=== PATIENT | female | born 2000 | race Caucasian/White ===

== ENCOUNTER 2018-12-04 18:47 | Emergency (ER) | payer BC ==
[2018-12-04] MEDS ORDERED: NS 1,000 ML IV ONE ×2 (18:53→19:56)
[2018-12-04] MEDS ORDERED: LORazepam 2 MG/ML INJ IM ONE ×2 (18:54→18:59)
[2018-12-04] MEDS ORDERED: HALOPERIDOL LACT 5 MG/ML INJ IM ONE (18:54)
--- NOTE | 2018-12-04 19:02 | EDPHY ---
H & P Source: Patient, Police, EMS Time Seen by Provider: 12/04/18 19:00 HPI/ROS: HPI CHIEF COMPLAINT: Acute psychosis, screaming, left arm laceration, M1 hold by police, alcohol intoxication HISTORY OF PRESENT ILLNESS: This patient is a 18-year-old female she presents to the emergency room in handcuffs by police and EMS in 4 point restraints for acute psychosis and screaming/intoxication. It is unclear exactly how police made contact with the patient but apparently she was outside screaming making and disturbance and the police and EMS made contact with her brought her here in 4 point restraints. She arrives to the emergency room screaming, appears to be psychotic, will not follow commands. She has a large left arm volar laceration across the distal 1/3 of her forearm. Past Medical History: Unknown medical history Past Surgical History: Unknown surgical history Social History: Unknown Family History: Unknown ROS REVIEW OF SYSTEMS: Limited due to screaming and mental state. Exam Constitutional screaming, smells of alcohol, acutely psychotic, triage nursing summary reviewed, vital signs reviewed, awake/alert. Eyes normal conjunctivae and sclera, EOMI, PERRLA. HENT normal inspection, atraumatic, moist mucus membranes, no epistaxis, neck supple/ no meningismus, no raccoon eyes. Respiratory clear to auscultation bilaterally, normal breath sounds, no respiratory distress, no wheezing. Cardiovascular rate normal, regular rhythm, no murmur, no edema, distal pulses normal. Gastrointestinal soft, non-tender, no rebound, no guarding, normal bowel sounds, no distension, no pulsatile mass. Genitourinary no CVA tenderness. Musculoskeletal left arm: Good distal pulse, good cap refill, large 8 cm horizontally oriented left forearm laceration volar side, with muscle involvement and tendon involvement. Unable to assess sensation due to patient' s agitated combative behavior, then subsequently sedation. Unable to evaluate movement of digits due to intoxication/agitated behavior. no midline vertebral tenderness, full range of motion, no calf swelling, no tenderness of extremities, no meningismus, good pulses, neurovascularly intact. Skin pink, warm, & dry, no rash, skin atraumatic. Neurologic intoxicated, screaming. Moves all extremities. Psychiatric screaming, acutely psychotic Heme/Lymph/Immune no lymphadenopathy. Differential Diagnosis: Includes but is not limited to in a particular order underlying acute psychosis, mood disorder, depression, substance abuse Medical Decision Making: Plan for this patient she is on M1 hold by police, she is here acutely psychotic and screaming, unable to evaluate her, she has a left arm laceration needs further evaluation, IM Haldol 10 mg has been ordered IM Ativan 2 mg has been ordered, basic labs cardiac cath technologist. Re-evaluation: 1918: Patient remains acutely psychotic, agitated, I have ordered the patient 5 mg IM Versed on top of 10 mg IM Haldol 2 mg IM Ativan Left arm is examined: The patient's left arm could only be examine after she was sedated with Haldol 10 mg IM 2 mg IM Ativan and 5 mg IM Versed. I was unable to earlier examine her arm due to acute psychosis screaming and combative behavior. The patient is now sedated I was able to examine her left arm. She does have a good distal pulse, good cap refill, she has a rather large gaping left arm laceration that is horizontal along the volar side of the left forearm. It Is approximately 8 cm in length horizontally it involves tendon and muscle. There is an obvious tendon laceration of the flexor tendons. Unclear at this time, which digits are unable to flex, due to her not able to participate in exam ( intoxicated/sedated) Plan for IV Ancef. Will clean wound copiously. Contact orthopaedics. Plan for 2 L of normal saline fluid. Will place a dressing over the left forearm laceration Will contact Orthopedics. I spoke with Orthopedics consult them at 8:[address] Vega, we discussed case in detail. He recommends loose approximation of the wound edges, clean and irrigate her wound copiously. IV Ancef, suture close and splint. He will be glad to follow her up for final wound closure/tendon repair. Serum alcohol level 285 upon arrival. X-ray left forearm negative for acute fracture foreign bodies. Soft tissue swelling noted. Long discussion with mom over the phone at 9:00 p.m. The mom will be flying out here tomorrow morning she is 6:00 a.m. Flight from [place] and will be here around 10:30 a.m.. Patient is pending sobriety at this time 9:19 p.m.. Patient signed over to Dr. Miles. 920pm. Patient will need to sober from her alcohol and medications that were given. She will then need mental health evaluation in the morning. Patient will need eval. Mom to visit in am. Additionally, discharge instructions will be provided for follow up care of her arm. Additionally, keflex Rx will be provided. Once she is awake in the arm, and demar from alcohol, and sedation medications , we will need to go over instruction on who to follow up with and when. She will need to follow up with ortho for final care of her wound/tendons. Critical Care: Total Critical Care Time Spent Managing this Patient: 65 Minutes. This time was spent Exclusively with this patient. This Care was exclusive of procedures. The Organ System/life at risk was Acute Pyschosis, alcohol Intoxication, left arm wound/laceration/tendon laceration. This Patient was in Critical Condition because Acute Pyschosis, alcohol Intoxication, left arm wound/laceration/tendon laceration. (Donn Elizondo) Constitutional: Initial Vital Signs Temperature (C) 36.4 C 12/04/18 19:00 Heart Rate 107 H 12/04/18 19:00 Respiratory Rate 16 12/04/18 19:00 Blood Pressure 112/88 H 12/04/18 19:00 O2 Sat (%) 93 12/04/18 19:00 O2 Delivery Mode Room Air Allergies/Adverse Reactions: No Known Allergies Allergy (Unverified 12/05/18 10:56) Home Medications: Medication Instructions Recorded Cephalexin [Keflex] 500 mg PO Q6H #28 cap 12/04/18 Lexapro 12/05/18 traZODone 12/05/18 Medical Decision Making Procedures: Laceration Repair I was asked to assist in loose closure of this left forearm wound. Patient is sedated, implied consent. Incision across the volar aspect of the left forearm 8 cm in length, full-thickness with tendon and muscle involvement. Franklin protocol used to establish correct patient, procedure, equipment, desktop support specialist, and site. Anesthesia obtained by local infiltration. Anesthetized with 1% lidocaine with epinephrine. Laceration location left mid volar mid forearm, length 8 cm, simple. Patient was prepped and draped in usual sterile fashion. Hemostasis achieved with direct pressure. Wound explored through full range of motion and entire depth of wound probed and visualized with gloved finger. No suspicion for foreign body, or contamination. Area was cleansed with Shur-Clens and copiously irrigated with sterile saline as per protocol. No foreign body or material removed. Repair method 4.0 Prolene interrupted. Twelve of sutures placed. Well aligned, loosely approximated. wound was dressed with antibiotic ointment, dressing and volar splint. Patient tolerated well with no immediate complications. Wound care: Clean and dry x 24 hours, gently clean with soap and water, cover with topical antibiotic ointment/bandage. Patient will follow up outpatient with Orthopedic surgery for wound evaluation. (Yumi Diallo) ED Course/Re-evaluation: Patient's care was signed out to me by Dr. Elizondo at 9:00 p.m.. Her labs are reviewed. Her forearm laceration has been repaired. She is resting comfortably. She needs a mental health evaluation after sobriety. (Yuan Miles) 1623: Patient accepted at [facility]. Appropriate transfer be set up. EMtala Will be filled out. Dr. Richardson accepts. (Donn Elizondo) Other Provider: Care assumed at 7:00 a.m., patient is on a mental health hold. Plan for mental health evaluation today. Her wound has been addressed as requested by Orthopedics, volar splint is in place. I will order her to receive oral Keflex scheduled while she is in the emergency department, an outpatient prescription has been written by Dr. Elizondo. Signed back to Jaret at 1500 placement pending. (Raymond Casas) Care Turn Over: Dr. Hughes at 11 pm (Yuan Miles) 6:23 a.m.- Patient has been stable, sleeping overnight. Blood alcohol level was elevated and that she is awaiting mental health evaluation this morning. Her mother is flying in this morning. Case will be signed out to the oncoming provider Dr. Casas at 7:00 a.m. (Alice Amezcua) - Data Points Laboratory Results: Laboratory Results 12/04/18 19:30 12/04/18 19:40 Medications Given: Cephalexin HCl (Keflex) 500 mg PO Q6 EUSEBIO PRN Reason: Protocol Stop: 01/04/19 13:14 Last Admin: 12/05/18 13:25 Dose: 500 mg Discontinued Medications Cephalexin (Keflex 500 Mg Prepack#4) 1 btl TAKEHOME EDNOW ONE PRN Reason: Protocol Stop: 12/04/18 21:13 Last Admin: 12/05/18 11:14 Dose: Not Given Cephalexin HCl (Keflex) 500 mg PO Q6 ONE PRN Reason: Protocol Stop: 12/05/18 06:46 Last Admin: 12/05/18 08:46 Dose: 500 mg Haloperidol Lactate (Haldol Injection) 10 mg IM EDNOW ONE Stop: 12/04/18 18:55 Last Admin: 12/04/18 19:00 Dose: 10 mg Sodium Chloride (Ns) 1,000 mls @ 0 mls/hr IV EDNOW ONE; Wide Open PRN Reason: Protocol Stop: 12/04/18 18:54 Last Admin: 12/04/18 19:42 Dose: 1,000 mls Cefazolin Sodium/Dextrose (Ancef) 100 mls @ 200 mls/hr IV EDNOW ONE PRN Reason: Protocol Stop: 12/04/18 20:25 Last Admin: 12/04/18 20:37 Dose: 100 mls Sodium Chloride (Ns) 1,000 mls @ 0 mls/hr IV ONCE ONE PRN Reason: Wide Open Stop: 12/04/18 19:57 Last Admin: 12/04/18 20:37 Dose: 1,000 mls Lorazepam (Ativan Injection) 2 mg IM EDNOW ONE Stop: 12/04/18 19:00 Last Admin: 12/04/18 19:00 Dose: 2 mg Midazolam HCl (Versed) 5 mg IM EDNOW ONE Stop: 12/04/18 19:19 Last Admin: 12/04/18 19:28 Dose: 5 mg Midazolam HCl (Versed) 5 mg IVP EDNOW ONE Stop: 12/04/18 20:59 Last Admin: 12/04/18 22:08 Dose: Not Given Departure - Departure Disposition: Other Psych, Not [place] Clinical Impression: Psychosis Qualifiers: Psychosis type: other Qualified Code(s): F28 - Other psychotic disorder not due to a substance or known physiological condition Laceration of left forearm with tendon involvement Qualifiers: Encounter type: initial encounter Qualified Code(s): S51.812A - Laceration without foreign body of left forearm, initial encounter Alcohol intoxication Qualifiers: Complication of substance-induced condition: uncomplicated Qualified Code(s): F10.920 - Alcohol use, unspecified with intoxication, uncomplicated Condition: Good Instructions: Cephalexin (By mouth), Laceration (ED), Alcohol Intoxication (ED) Additional Instructions: 1. Take antibiotics as prescribed. 2. You need to follow up with Orthopedics Dr. Vega this Thursday or Thursday in the office, as the laceration on her left arm has cut some tendons. 3. Return to the emergency room if she develops worsening symptoms questions or concerns Referrals: Nathaniel Vega MD [Medical Doctor] - 1-2 days without fail Prescriptions: Cephalexin [Keflex] 500 mg PO Q6H #28 cap
[2018-12-04] MEDS ORDERED: MIDAZOLAM 10 MG/2 ML VIAL IM ONE (19:18)
[2018-12-04] MEDS ORDERED: ceFAZolin 2 GM/DEXTROSE 100 ML IV ONE (19:56)
[2018-12-04 19:57] LABS: PLATELET COUNT 423 10^3/uL (150-400)
[2018-12-04] MEDS ORDERED: MIDAZOLAM 10 MG/2 ML VIAL ONE (20:54)
[2018-12-04] MEDS ORDERED: MIDAZOLAM 2 MG/2 ML VIAL IVP ONE (20:58)
[2018-12-04] MEDS ORDERED: CEPHALEXIN 500MG PREPACK#4 BTL TAKEHOME ONE (21:12)
[2018-12-05] MEDS ORDERED: CEPHALEXIN 500 MG CAP PO ONE (06:45)
[2018-12-05] MEDS ORDERED: CEPHALEXIN 500 MG CAP PO SCH (13:15)
--- NOTE | 2018-12-05 14:32 | ASMTTLCEVL ---
TLC Evaluation - Basic Information Evaluation Start Date and 12/05/2018 11:00 AM Time Hospital Status Answers: M1 Hold 72-hr M1 Hold Start Date 12/04/2018 06:00 PM and Time Patient statement Notes: "getting upset...I remember feeling very sad". Narrative Notes: Eugenio is a 18 y/o female, college student. Pt was brought in by an ambulance on an M1 hold for being a danger to herself. Per M1, "I contacted Tram at [address] [place] [address] after reports she cut her wristss. When contacted, Tram was frantic and tried to leave despite a large laceration to her left wrist. She was eventually taken to [facility]". Pt's ETOH level was 285 and she was positive for marijuana. Pt was calm upon arrival at the ED, but shortly thereafter became agitated. She was treated with Haldol, Ativan and Versed and once calm had her wound examined and treated. Pt's mother flew in from [place] and she and her daughter were interviewed separately for mental health evaluation. It appears that pt talked to her mother yesterday and seemed "okay" following a few days of feeling upset due to her bf attending a concert outof state and without her (he had used money he had saved for their formal to attend this event). Later that day pt began to drink alcohol with a group of friends. Pt apprently left her home and walked the 2 blocks to her 's fraternity where she entered the kitchen a took a knife from a drawer. She made a horizontal cut in her arm approx 7cm in length, lacerating her flexor tendons. She then took a picture of her arm and sent it to her . Pt followed this by walking back to her home where she resisted her roomates attempts to call an ambulance. Pt shared that she was not suicidal when she did this, but "just wanted to see...". She later said that this was not a suicide attempt, "I did not want to ". Pt has had a number of significant stressors which began in her senior year of high school when she lost her best friend commited suicide. Pt then went on to have a chalenging first 2 years at ; she struggled to make friends as a freshman and was declined by a sorority. She began her sophomore year with 3 close friends and roomates. One of these girls did not return to school and the girl she was closest with was arrested twice. This friend spent a month this spring in rehab and was unavailable to pt. Pt's bf was arrested for DV while observed trying to help her, following a fall from drunkenss. There was a restaining order put into place which was suspended and allowed them to see eachother, but only in public. This was then followed by her bf going to this out of state concert without her (she did not have the funds to go). [facility] describes her daughter as sensitive, emotional, empathetic and since high school more easily agitated by parental limits. She shares that her daughter has always disliked change. When her family moved to [place] when she was in 2nd grade, pt offered to stay there. and live with a neighbor. Both pt and mother recall a time when she was in middle school and lost a friend suddenly with no ability to say good-bye as a very difficulty time for her. Pt has no reported hx of SI/SA, HI/HILL and denies any at the present. Pt's mother plans to take pt back to [place] when she is d/opal from the hospital; she will seek dual diagnosis treatment. Diagnosis History Notes: Pt has been in therapy in the past following specific life events, but no psychiatric diagnosis is known. Prior suicide attempts Notes: Pt denies. Prior hospitalizations Notes: Pt denies. Treatment Responses Notes: Pt has benefitted from therapy in the past and sought help recently at [facility] at . History of violence Notes: Pt denies Therapist: None Psychiatrist: None Medications (name, dosage, route, freq uency) Notes: Keflex 500mg Q6H Allergies/Reaction Notes: Seasonal allergies Sleep Notes: Pt tends to have difficulty falling asleep and then when possible will sleep in late. Appetite Notes: Pt appears to be of a healthy weight. She lost approx 20 lbs during her freshman year, has gained some of that back and now has a stable weight. Medical/Surgical history Notes: Pt had her wound sutured in the ED; there were 12 stitches. A Volar splint is in place. Substance use history (frequency, intensity, his tory, duration) Notes: Pt reports drinking weekly, up to 5 drinks at a time. Her BAL was 285. Pt uses marijuana regularly Pt has experiemented with other substances, but does not use them regularly. Family composition Notes: Pt's parents are and live in [place], [place]. She has 2 sisters, 14 and 22. Need for family Answers: Yes participation in patient's care Family psychiatric/substance abuse history Notes: PGM committed suicide following a diagnosis of depression. Nephew - had a period of depression Maternal uncle has alcoholism Sister has fibromyalgia and the medications for that cause depression in her. Developmental history Notes: Pt met her developmental milestones. She did well in school and always had friends. [facility] describes her daughter as sensitive, emotional, empathetic and since high school more easily agitated by parental limits. She shares that her daughter has always disliked change. When her family moved to [place] when she was in 2nd grade, pt offered to stay there. and live with a neighbor. Both pt and mother recall a time when she was in middle school and lost a friend suddenly with no ability to say good-bye as a very difficulty time for her. Abuse concerns Answers: None Marital status/children Notes: Pt is not and has no children. Living situation Notes: Pt lives with roomates in [place]. Sexual history/orientation Notes: Heterosexual Peer support/family strengths Notes: Pt has a supportive family, multiple close friends and has been in a relationship with her bf for 4 years Education level/history Notes: Pt is a sophomore at studying Political science and Psychology. 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 Notes: Pt denies. Legal Notes: Pt denies. Islam/Spiritual Notes: Unknown Leisure Notes: Pt enjoys spending time with her friends, music, playing and coaching lacrosse. Collateral Notes: Mother- Giovani Ortega, Patient's strengths Answers: Athletic (Please select at least TWO strengths): Intelligent Supportive Family TLC Evaluation - Mental Status Exam Appearance: Answers: Unkempt Disheveled Eye Contact: Answers: Avoiding Mood: Answers: Depressed Affect: Answers: Blunted Subdued Behavior: Answers: Appropriate Cooperative Speech: Answers: Relevant Logical Clear Coherent Thought Process: Answers: Organized Oriented Alert Goal Oriented Intact Insight: Answers: Poor Judgement: Answers: Poor Depression Answers: Crying Spells Signs/Symptoms: Sad Mood Hallucinations: Answers: None Pt reported to have Answers: Yes suicidal/self-injuring ideation/behavior? Pt reported to be making Answers: Yes suicidal/self-injuring threats? Pt reported to have Answers: No aggression/assault ideation/behavior? Pt reported to be making Answers: No aggression/assault threats? Pt exhibits inability to Answers: No care for self/grave disability? Ideation/behavior is Answers: No chronic? Patient has a specific Answers: Yes plan? Pt has access to means to Answers: Yes execute the plan? Ideation involves Answers: Yes serious/lethal intent? Ideation has Answers: No delusional/hallucinatory content? History of Answers: No suicidal/self-injuring ideation, behavior, or threats? History of Answers: No aggressive/assaultive ideation, behavior, or threats? History of serious Answers: No physical harm to self/others while in treatment setting? TLC Evaluation - Suicide/Homicide Risk Suicide Risk Factors: Answers: Alcohol/Heavy Drug Use Hx of Suicide Attempt by Family Member Organized Lethal Plan Homicide/violence risk Answers: Heavy Alcohol Use factors: Heavy Drug Use Current Suicidal Answers: No Ideation? Current Suicidal Ideation Answers: No in the Past 48 Hours? Current Suicidal Ideation Answers: No in the Past Month? Current Suicidal Answers: No Ideation, Worst Ever? Suicide Internal Answers: Absence of Psychosis Protective Factors: Suicide External Answers: Social Support Protective Factors: Ranking of patient's Answers: Severe suicidal risk: Ranking of patient's Answers: Low homicidal risk: TLC Evaluation - Wrap-up BDI Total Score: Incomplete BDI Question #2 Score: 0 BDI Question #9 Score: 1 BSS Total Score: 0 AXIS I Diagnosis (include DSM-V and ICD-10 codes), must also be entered in [employer], which is the source of truth. Notes: Major Depressive Disorder, single episode, severe 296.23 (F32.2) Alcohol Use Disorder, severe 303.90 (F10.20) Cannabis Use Disorder, severe 304.30 (F12.20) In consultation with [facility] ED physician,Dr Miles it was concurred that Pt does appear to meet 27-65 criteria requiring psychiatric hospitalization as Pt does appear to be an imminent risk of harm to self due to a mental illness condition. Pt was read the Patient Rights and Responsibilities Statement on 12/05/2018 at 14:30. Pt signed rights; the original was placed in the chart and a copy given to pt. Date Signed: 12/05/2018 02:31 PM Electronically Signed By:Pattie Singh
--- NOTE | 2018-12-05 15:54 | ASMTTCLDSP ---
TLC Discharge Disposition Disposition: Answers: Transfer Discharge Concerns/Recommendations: Notes: In consultation with [facility] ED physician,Dr Miles it was concurred that Pt does appear to meet 27-65 criteria requiring psychiatric hospitalization as Pt does appear to be an imminent risk of harm to self due to a mental illness condition. Pt was read the Patient Rights and Responsibilities Statement on 12/05/2018 at 14:30. Pt signed rights; the original was placed in the chart and a copy given to pt. Type of Hold: Answers: M1/72-hour Hold Hold initiated by: Answers: Police For Transfers, Accepting [facility] Facility: For Transfers, Accepting Dr Richardson Psychiatrist: For Transfers, [facility]. Patient is Being Transferred: Date Signed: 12/05/2018 03:53 PM Electronically Signed By:Pattie Singh
[2018-12-05 18:37] VITALS: BP 118/75
== END 2018-12-05 18:35 ==
PROC: 0HQEXZZ Repair Left Lower Arm Skin, External Approach (ICD-10-PCS; principal; 2018-12-04)
DX: S51.812A Laceration without foreign body of left forearm, initial encounter (principal); F28 Other psychotic disorder not due to a substance or known physiological condition; F10.920 Alcohol use, unspecified with intoxication, uncomplicated; W26.9XXA Contact with unspecified sharp object(s), initial encounter; Y92.89 Other specified places as the place of occurrence of the external cause
CPT/HCPCS: 80305; 96365; G0480; J0690; J1630; J2060; J2250